=== PATIENT | female | born 1950 | race African-American/Black ===

== ENCOUNTER 2021-02-25 08:15 | Emergency (ER) | payer MEDICARE, MEDICAID ==
[~2021-02-25] VITALS: Ht 137.2 cm; Wt 81.8 kg
[~2021-02-25 08:15] MED LIST: HYDR25TA2 PO; METF-960 PO; TYL3 PO
[2021-02-25] MEDS ORDERED: ACETAMINOPHEN 500 MG TABLET PO ONE (08:30)
[2021-02-25] MEDS ORDERED: DOXYCYCLINE HYCLATE 100 MG TABLET PO ONE (08:30)
[2021-02-25 11:30] VITALS: BP 121/86
== END 2021-02-25 12:30 | disposition home or self-care (01) ==
LOC: EMS 08:17
DX: L03.317 Cellulitis of buttock (principal); E11.9 Type 2 diabetes mellitus without complications; I10 Essential (primary) hypertension; F17.210 Nicotine dependence, cigarettes, uncomplicated; F11.90 Opioid use, unspecified, uncomplicated; Z79.84 Long term (current) use of oral hypoglycemic drugs
CPT/HCPCS: 99283